=== PATIENT | female | born 1995 | race Caucasian/White ===

== ENCOUNTER 2018-09-11 15:41 | Outpatient (CLI) | payer BC ==
[~2018-09-11] VITALS: Ht 154.9 cm; Wt 81.4 kg
[2018-09-11 16:13] VITALS: Ht 154.9 cm; Wt 81.4 kg
[2018-09-11] MEDS ORDERED: PNV11TAB PO (16:15)
--- NOTE | 2018-09-11 17:35 | TRIAGE ---
OB Triage Datetime Report Generated by CPN: 09/11/2018 17:35 Datetime: 09/11/2018 16:17 Labor Evaluation Frequency: 2-4 Monitor Mode: External Duration (sec)2399: 60-100 Quality: Mild Pattern: Normal: <= 5 Contractions in 10 Minutes Resting Tone [place]: Relaxed Heart Rate FHR Baseline Rate: 130 Monitor Mode: External US FHR Baseline Changes: No Baseline Change Variability: Moderate 6-25 bpm Accelerations: 15X15 Decelerations: None Category: Category I Pain Assessment Pain Presence: None/Denies Datetime: 09/11/2018 16:10 Stage of : OB Triage Assessment Type: Triage Maternal Assessment Level of Consciousness: Fully Conscious DTR's/Clonus: DTRs 2+; No Clonus Headache: Denies Blurred Vision: No Respiratory Effort: Unlabored; Regular Rhythm; Equal Expansion Breath Sounds, Left: Clear and Equal Breath Sounds, Right: Clear and Equal Nausea/Vomiting: Denies RUQ Epigastric Pain: Denies Facial Edema: None Temperature Route: Axillary Fall Risk Assessment History of Falling: (0) No Secondary Diagnosis: (0) No Ambulatory Aid: (0) Bedrest/Nurse Assist IV Therapy: (0) No Gait: (0) Normal/Bedrest/Immobile Mental Status: (0) Oriented to Own Ability Fall Score: 0 Fall Risk Score Definition: No Risk: No action required Datetime: 09/11/2018 16:00 Time of Arrival: 09/11/2018 16:00 EGA: 40.1 Arrived By: Ambulatory Arrived From: Office Chief Complaint: POST DATE Movement: Present Contractions: Denies/Absent Rupture of Membranes: Denies Vaginal Bleeding: None Vaginal Discharge: Denies Recent Sexual Intercouse: Denies Abdominal Trauma: Not Applicable Patient Complaints: None Provider Notified: dr shah Initial Plan: EFW,BPP Datetime: 08/19/2018 00:30 Fall Score: 0 Fall Risk Score Definition: No Risk: No action required Datetime: 08/19/2018 00:29 EGA: 36.6
[2018-09-12] MEDS ORDERED: FER325 PO (11:35)
== END 2018-09-11 17:18 | disposition home or self-care (01) ==
LOC: OBT 15:41 → L-D 15:42 → OBT 17:18
PROVIDERS: ATTEND Obstetrics & Gynecology
DX: O48.0 Post-term pregnancy (principal); Z3A.40 40 weeks gestation of pregnancy
CPT/HCPCS: 76815; 76818; Z7500; G0463

== ENCOUNTER 2018-09-12 10:56 | Inpatient (IN) | payer BC ==
--- NOTE | 2018-09-11 18:38 | PN ---
Triage Information Date/Time Reason for visit: postdate for NST BPP Weeks of Gestation 40+ /Para n/a Diabetes: none Hypertention: none Objective Heart Rate: 140's Contractions: >10 Minutes Apart Disposition: Discharge Assessment/Plan BPP 04/19 Cx closed As her provider's recommendation.she will see her tomorrow and decides about the mode of delivery Questions answered Precautions discussed Follow up with provider XIMENA GOMEZ M.D. Sep 11, 2018 18:38
[~2018-09-12] VITALS: Ht 154.9 cm; Wt 80.8 kg
[~2018-09-12 10:56] MED LIST: PNV11TAB PO
[2018-09-12] MEDS ORDERED: FER325 PO (11:35)
[2018-09-12 11:36] VITALS: Ht 154.9 cm; Wt 80.8 kg
[2018-09-12 11:37] VITALS: BP 118/67; PULSE 75; RESP 18
--- NOTE | 2018-09-12 11:54 | HP ---
Date/Time of Note Date/Time of Note DATE: 09/12/18 TIME: 11:51 OB - History Hx of Present Chief Complaint: post date Estimated Due Date: Sep 10, 2018 : 2 Para: 0 Spontaneous : 0 Therapeutic : 1 Care: Good Care Ultrasounds: Normal mid trimester US Obstetrical Complications: None Medical Complications: None Past Family/Social History * Past Medical, Surgical, Family and Obstetric Histories reviewed from chart. GBS Status: Negative OB Admission Exam Vital Signs Vital Signs Vital Signs Date Temp Pulse Resp B/P (MAP) Pulse Ox O2 O2 Flow FiO2 Time Delivery Rate 09/12/18 98.4 75 18 118/67 Room Air 11:37 (84) Physical Exam HEENT: WNL Heart: Rhythm Normal Lungs: Clear, Equal Abdomen: WNL Extremities: Normal Reflexes: Normal Cervical Dilatation: None Effacement: 50% Station: -2 Membranes: Intact Heart Rate: 120's Accelerations: Accelerations Present Decelerations: No Decelerations Varibility: Moderate OB Assessment/Plan Reason for admission: induction of labor Plan: Induction Induction Method: per Misoprostol Protocol CECY JULIAN MD Sep 12, 2018 11:54
[2018-09-12] MEDS ORDERED: BUTORPHANOL 2 MG INJ IV PRN (12:00)
[2018-09-12] MEDS ORDERED: LIDOCAINE 1% (MPF) 30 ML INJ INJ PRN (12:00)
[2018-09-12] MEDS ORDERED: CARBOPROST 250 MCG INJ IM PRN (12:00)
[2018-09-12] MEDS ORDERED: IBUPROFEN 600 MG TAB PO PRN (12:00)
[2018-09-12] MEDS ORDERED: METHYLERGONOVINE 0.2 MG INJ IM PRN (12:00)
[2018-09-12] MEDS ORDERED: OXYTOCIN 30 UNITS/LR 500 ML IV PRN (12:00)
[2018-09-12] MEDS ORDERED: OXYTOCIN 30 UNITS/LR 500 ML IV SCH (12:00)
[2018-09-12] MEDS ORDERED: MISOPROSTOL 200 MCG TAB PR PRN (12:00)
[2018-09-12] MEDS: LACTATED RINGER'S 1,000 ML IV SCH ×3 (12:08→23:41)
[2018-09-12] MEDS: MISOPROSTOL 50 MCG CAPSULE PO SCH ×3 (12:28→21:44)
[2018-09-13] MEDS: LACTATED RINGER'S 1,000 ML IV SCH ×3 (03:46→19:03)
[2018-09-13] MEDS: MISOPROSTOL 50 MCG CAPSULE PO SCH ×5 (08:36→21:00)
[2018-09-13] MEDS: OXYTOCIN 30 UNITS/LR 500 ML IV SCH (20:52)
[2018-09-14] MEDS: LACTATED RINGER'S 1,000 ML IV SCH ×4 (03:47→20:42)
[2018-09-14] MEDS ORDERED: LACTATED RINGER'S 1,000 ML IV PRN (07:45)
[2018-09-14] MEDS ORDERED: IBUPROFEN 600 MG TAB PO PRN (08:00)
[2018-09-14] MEDS ORDERED: MINERAL OIL LIGHT 10 ML VIAL TOP PRN (08:00)
[2018-09-14] MEDS: OXYTOCIN 30 UNITS/LR 500 ML IV SCH (10:05)
--- NOTE | 2018-09-14 20:21 | PREAC ---
Date/Time of Note Date/Time of Note DATE: 09/14/18 TIME: 20:20 Anesthesia Eval and Record Evaluation Time Pre-Procedure Interview DATE: 09/14/18 TIME: 20:20 Age 23 Sex female NPO: 8 hrs Preoperative diagnosis iup at post dates Planned procedure labor epidural Past Medical History Past Medical History: None Surgery & Anesthesia Issues No known issue Meds Anticoagulation: No Beta Rhea within 24 hr: No Reason Beta Rhea not given: Pt. not on B-Rhea Reported Medications Ferrous Sulfate* (Ferrous Sulfate*) 325 Mg Tabec, 325 MG PO BID, TAB 09/12/18 Discontinued Reported Medications [id number] ( ) 1 Each Tablet, 1 TAB PO DAILY, TAB 09/11/18 Current Medications Lactated Ringer's 1,000 ml @ 125 mls/hr Q8H IV Last administered on 09/14/18at 19:48; Admin Dose 125 MLS/HR; Start 09/12/18 at 11:40 Butorphanol Tartrate (Stadol) 2 mg Q2H PRN IV .PAIN; Start 09/12/18 at 12:00 Lidocaine (Xylocaine 1% (Mpf)) 30 ml ONCE PRN INJ .EPISIOTOMY; Start 09/12/18 at 12:00 Oxytocin/Lactated Ringer's 500 ml @ 500 mls/hr ONCE POST IV ; Start 09/12/18 at 12:00 Oxytocin/Lactated Ringer's 500 ml @ 125 mls/hr POST IV ; Start 09/12/18 at 12:00 Oxytocin/Lactated Ringer's 500 ml @ 0 mls/hr ONCE PRN IV .VAGINAL BLEEDING; Start 09/12/18 at 12:00 Methylergonovine Maleate (Methergine) 0.2 mg ONCE PRN IM .VAGINAL BLEEDING; Start 09/12/18 at 12:00 Oxytocin/Lactated Ringer's 500 ml @ 0 mls/hr FOR INDUCTION IV Last administered on 09/14/18at 10:05; Admin Dose 1 MLS/HR; Start 09/13/18 at 20:30 Ibuprofen (Motrin) 600 mg ONCE PRN PO .PAIN 1-5; Start 09/14/18 at 08:00 Lactated Ringer's 1,000 ml @ 2,000 mls/hr Q30M PRN IV .ANESTHESIA; Start 09/14/18 at 07:45 Mineral Oil (Muri-Lube) PRN PRN TOP EPISIOTOMY; Start 09/14/18 at 08:00 Meds reviewed: Yes Allergies Coded Allergies: No Known Allergy (Unverified , 08/19/18) Allergies Reviewed: Yes Labs/Studies Labs Reviewed: Reviewed by anesthesiologist Result Diagram: 09/12/18 1100 test: Positive Pre-procedure Exam Last vitals Vital Signs Date Temp Pulse Resp B/P (MAP) Pulse Ox O2 O2 Flow FiO2 Time Delivery Rate 09/12/18 98.4 75 18 118/67 Room Air 11:37 (84) Airway: Adequate mouth opening, Adequate thyromental dist Mallampati: Mallampati II Teeth: Normal Lung: Normal Heart: Normal ASA Physical Status ASA physical status: 2 Emergency: None Planned Anesthetic Neuraxial: Epidural Planned Pain Management Parenteral pain med Pre-operative Attestations Prior to commencing anesthesia and surgery, the patient was re-evaluated, there was verification of: *The patient's identity *The results of appropriate recent lab work and preoperative vital signs *The above evaluation not changing prior to induction *Anesthetic plan, risk benefits, alternative and complications discussed with patient/family; questions answered; patient/family understands, accepts and wishes to proceed. ILIA CHAPMAN Sep 14, 2018 20:21
[2018-09-14] MEDS ORDERED: FENTAnyl 50 MCG/ML VIAL ONE (20:23)
[2018-09-14] MEDS ORDERED: ROPIVACAINE 0.2% 100 ML ONE (20:23)
[2018-09-14] MEDS ORDERED: FENTAnyl 2MCG/ML-ROPIV 0.2% 100 ML BAG EPI SCH (20:30)
[2018-09-14] MEDS ORDERED: DIPHENHYDRAMINE 50 MG INJ IV PRN (20:30)
[2018-09-14] MEDS ORDERED: ONDANSETRON 4 MG INJ IV PRN (20:30)
[2018-09-14] MEDS ORDERED: NALOXONE (0.4 MG/ML) INJ IV PRN (20:30)
[2018-09-15] MEDS: LACTATED RINGER'S 1,000 ML IV SCH ×3 (01:50→21:02)
[2018-09-15] MEDS ORDERED: ROPIVACAINE 0.2% 100ML BAG EPI PRN (04:00)
[2018-09-15] MEDS ORDERED: ONDANSETRON 4 MG INJ ONE (07:00)
[2018-09-15] MEDS ORDERED: OXYTOCIN 30 UNITS/LR 500 ML BAG IV ONE (07:00)
[2018-09-15] MEDS ORDERED: CEFAZOLIN 2 GM/50 ML (PMX) 50 ML IVPB ONE (07:30)
--- NOTE | 2018-09-15 07:49 | PREAC ---
Date/Time of Note Date/Time of Note DATE: 09/15/18 TIME: 07:48 Anesthesia Eval and Record Evaluation Time Pre-Procedure Interview DATE: 09/15/18 TIME: 07:48 Age 23 Sex female NPO: 8 hrs Preoperative diagnosis Failure to Progress Planned procedure Past Medical History Past Medical History: Includes : : (1), Para: (0), Gestational age: (40) Surgery & Anesthesia Issues No known issue Meds Anticoagulation: No Beta Rhea within 24 hr: No Reason Beta Rhea not given: Pt. not on B-Rhea Reported Medications Ferrous Sulfate* (Ferrous Sulfate*) 325 Mg Tabec, 325 MG PO BID, TAB 09/12/18 Discontinued Reported Medications [id number] ( 19) 1 Each Tablet, 1 TAB PO DAILY, TAB 09/11/18 Current Medications Lactated Ringer's 1,000 ml @ 125 mls/hr Q8H IV Last administered on 09/15/18at 07:07; Admin Dose 125 MLS/HR; Start 09/12/18 at 11:40 Butorphanol Tartrate (Stadol) 2 mg Q2H PRN IV .PAIN; Start 09/12/18 at 12:00 Lidocaine (Xylocaine 1% (Mpf)) 30 ml ONCE PRN INJ .EPISIOTOMY; Start 09/12/18 at 12:00 Oxytocin/Lactated Ringer's 500 ml @ 500 mls/hr ONCE POST IV ; Start 09/12/18 at 12:00 Oxytocin/Lactated Ringer's 500 ml @ 125 mls/hr POST IV ; Start 09/12/18 at 12:00 Oxytocin/Lactated Ringer's 500 ml @ 0 mls/hr ONCE PRN IV .VAGINAL BLEEDING; Start 09/12/18 at 12:00 Methylergonovine Maleate (Methergine) 0.2 mg ONCE PRN IM .VAGINAL BLEEDING; Start 09/12/18 at 12:00 Oxytocin/Lactated Ringer's 500 ml @ 0 mls/hr FOR INDUCTION IV Last administered on 09/14/18at 10:05; Admin Dose 1 MLS/HR; Start 09/13/18 at 20:30 Ibuprofen (Motrin) 600 mg ONCE PRN PO .PAIN 1-5; Start 09/14/18 at 08:00 Lactated Ringer's 1,000 ml @ 2,000 mls/hr Q30M PRN IV .ANESTHESIA; Start 09/14/18 at 07:45 Mineral Oil (Muri-Lube) PRN PRN TOP EPISIOTOMY; Start 09/14/18 at 08:00 Naloxone HCl (Narcan) 0.1 mg Q2M PRN IV .RESP RATE; Start 09/14/18 at 20:30; Stop 09/15/18 at 20:29 Diphenhydramine HCl (Benadryl) 25 mg Q6H PRN IV .ITCHING; Start 09/14/18 at 20:30; Stop 09/15/18 at 20:29 Ondansetron HCl (Zofran Inj) 4 mg Q6H PRN IV .NAUSEA/VOMITING; Start 09/14/18 at 20:30; Stop 09/15/18 at 20:29 Fentanyl/ Ropivacaine 100 ml EPIDURAL INFUSION EPI ; Start 09/14/18 at 20:30 Ropivacaine (Naropin 0.2% 100 ml Bag) 100 ml PRN PRN EPI ANESTHESIA Last administered on 09/15/18at 04:17; Admin Dose 100 ML; Start 09/15/18 at 04:00 Cefazolin Sodium/ Dextrose 50 ml @ 100 mls/hr ONCE ONCE IVPB ; Start 09/15/18 at 07:30; Stop 09/15/18 at 07:59 Meds reviewed: Yes Allergies Coded Allergies: No Known Allergy (Unverified , 08/19/18) Allergies Reviewed: Yes Labs/Studies Labs Reviewed: Reviewed by anesthesiologist Result Diagram: 09/12/18 1100 test: Positive Studies: ECG (n/a), CXR (n/a) Pre-procedure Exam Last vitals Vital Signs Date Temp Pulse Resp B/P (MAP) Pulse Ox O2 O2 Flow FiO2 Time Delivery Rate 09/12/18 98.4 75 18 118/67 Room Air 11:37 (84) Airway: Adequate mouth opening, Adequate thyromental dist Mallampati: Mallampati II Teeth: Normal Lung: Normal Heart: Normal ASA Physical Status ASA physical status: 2 Emergency: None Planned Anesthetic Neuraxial: Epidural Planned Pain Management Epidural Pre-operative Attestations Prior to commencing anesthesia and surgery, the patient was re-evaluated, there was verification of: *The patient's identity *The results of appropriate recent lab work and preoperative vital signs *The above evaluation not changing prior to induction *Anesthetic plan, risk benefits, alternative and complications discussed with patient/family; questions answered; patient/family understands, accepts and wishes to proceed. CAMDEN CONNELLY MD Sep 15, 2018 07:49
[2018-09-15] MEDS ORDERED: CITRIC ACID/NA CITRATE 30 ML CUP ONE (07:51)
[2018-09-15] MEDS ORDERED: CITRIC ACID/NA CITRATE 30 ML CUP PO ONE (08:00)
[2018-09-15] MEDS ORDERED: ONDANSETRON 4 MG INJ IV ONE (08:00)
--- NOTE | 2018-09-15 08:55 | QN ---
Documentation Comment Patient has progressed to 2 cm dilation and there has been no further progress despite having adequate contractions and amniotomy. Patient is for delivery by primary due to arrest of dilation. Risks, benefits and alternatives were explained to the patient who stated she understood and gave informed consent for the procedure. CECY JULIAN MD Sep 15, 2018 08:55
[2018-09-15] MEDS ORDERED: PHENYLephrine (100 MCG/ML) 10ML SYG ONE (09:02)
[2018-09-15] MEDS ORDERED: KETOROLAC 30 MG INJ ONE (09:03)
[2018-09-15] MEDS ORDERED: DEXAMETHASONE 4 MG/ML 1 ML INJ ONE (09:03)
[2018-09-15] MEDS ORDERED: OXYTOCIN 10 UNIT INJ ONE (09:03)
[2018-09-15] MEDS ORDERED: METOCLOPRAMIDE 10 MG INJ ONE (09:03)
[2018-09-15] MEDS ORDERED: morphine SULFATE/PF (10 MG/10 ML) INJ ONE (09:14)
[2018-09-15] MEDS ORDERED: AZITHROMYCIN 500MG/NS (PMX) 250 ML IVPB ONE (09:30)
--- NOTE | 2018-09-15 10:01 | OPR ---
Operative Report Planned Procedure Procedure date Sep 15, 2018 Procedure(s) Primary low transverse Performed by Cecy Julian MD Cattle Killer: DILIP HERNANDEZ MD Anesthesiologist: CAMDEN CONNELLY MD Pre-procedure diagnosis Term with arrest of dilation [id number] Anesthesia Type: [id number] epidural Post-Procedure Post-procedure diagnosis Same Findings Live Baby, Apgars 8 and 8 Estimated Blood Loss: other (700 ml) Specimen(s) Placenta Grafts/Implant(s) none Complication(s) none Pt Condition post procedure: stable Disposition: PACU Procedure Description After spinal anesthesia had been dosed and tested, the patient was placed supine on the Operating Room table and prepped and draped in the usual sterile fashion for a section. A Pfannenstiel incision was made through the abdomen and carried down to the level of the fascia. The fascia was incised transversely and then the rectus muscle was dissected off the fascia and split bluntly in the midline. The peritoneum was the entered bluntly. The bladder flap was created and then a low segment transverse incision was made with a knife on the uterus until the amniotic fluid was encountered. The incision was widened with bandage scissors. A hand was inserted elevating the vertex and then the head delivered with assistance of fundal pressure.. The nares and oropharynx were bulb suctioned, and the remainder of the infant was delivered out of the maternal abdomen. . The cord was doubly clamped and cut, and the handed off to the awaiting resuscitation team who was present for delivery. The placenta was then manually extracted and the interior uterus was cleaned w ith a dry lap sponge. The uterus was exteriorized, and the incision of the uterus closed with a running interlocking stitch of Monocryl suture. The uterus was replaced in the maternal abdomen. The abdomen was cleared of clots. The fascia was closed with a running suture of #1 Vicryl suture meeting in the midline. The subcutaneous tissue was made hemostatic with Bovie cautery, and the skin approximated using faina. The patient tolerated the procedure well. All sponge and instrument counts were correct. She was taken to the recovery room in stable condition. CECY JULIAN MD Sep 15, 2018 10:01
--- NOTE | 2018-09-15 10:02 | PAC ---
Date/Time of Note Date/Time of Note DATE: 09/15/18 TIME: 10:01 Post-Anesthesia Notes Post-Anesthesia Note Last documented vital signs Vital Signs Date Temp Pulse Resp B/P (MAP) Pulse Ox O2 O2 Flow FiO2 Time Delivery Rate 09/15/18 99.8 75 18 118/67 97 Room Air 10:07 (84) Activity: WNL Respiratory function: WNL Cardiovascular function: WNL Mental status: Baseline Pain reasonably controlled: Yes Hydration appropriate: Yes Nausea/Vomiting absent: Yes CAMDEN CONNELLY MD Sep 15, 2018 10:02
[2018-09-15] MEDS: OXYTOCIN 30 UNITS/LR 500 ML IV SCH ×2 (10:28→11:43)
[2018-09-15 12:00] VITALS: BP 118/70; PULSE 72; RESP 16
[2018-09-15] MEDS ORDERED: LACTATED RINGER'S 1,000 ML IV SCH (12:14)
[2018-09-15] MEDS ORDERED: OXYTOCIN 30 UNITS/LR 500 ML IV SCH (12:14)
[2018-09-15 12:30] VITALS: BP 123/73; PULSE 64; RESP 16
[2018-09-15] MEDS ORDERED: LANOLIN HPA 1 PKT TOP PRN (12:30)
[2018-09-15] MEDS ORDERED: CARBOPROST 250 MCG INJ IM PRN (12:30)
[2018-09-15] MEDS ORDERED: OXYCODONE/ACETAMINOPHEN (5/325) TAB PO PRN ×2 (12:30)
[2018-09-15] MEDS ORDERED: OXYTOCIN 30 UNITS/LR 500 ML IV PRN (12:30)
[2018-09-15] MEDS ORDERED: METHYLERGONOVINE 0.2 MG INJ IM PRN (12:30)
[2018-09-15] MEDS ORDERED: MISOPROSTOL 200 MCG TAB PR PRN (12:30)
[2018-09-15] MEDS ORDERED: ONDANSETRON 4 MG INJ IV PRN (13:00)
[2018-09-15] MEDS ORDERED: HYDROmorphONE 0.5 MG/0.5 ML SYG IV PRN ×2 (13:00)
[2018-09-15] MEDS ORDERED: KETOROLAC 30 MG INJ IV PRN (13:00)
[2018-09-15] MEDS ORDERED: morphine 2 MG INJ IV PRN ×2 (13:00)
[2018-09-15] MEDS ORDERED: ACETAMINOPHEN 500 MG TAB PO PRN (13:00)
[2018-09-15] MEDS ORDERED: HYDROCODONE/APAP (5/325) TAB PO PRN (13:00)
[2018-09-15] MEDS ORDERED: NALBUPHINE HCL (10 MG/1 ML) INJ IV PRN (13:00)
[2018-09-15] MEDS ORDERED: DIPHENHYDRAMINE 50 MG INJ IV PRN (13:00)
[2018-09-15] MEDS ORDERED: NALOXONE (0.4 MG/ML) INJ IV PRN (13:00)
[2018-09-15] MEDS ORDERED: IBUPROFEN 800 MG TAB PO SCH (14:00)
[2018-09-15 15:00] VITALS: BP 122/71; PULSE 72; RESP 20
[2018-09-15 20:00] VITALS: BP 99/56; PULSE 83; RESP 16
[2018-09-15] MEDS: SENNA/DOCUSATE NA (8.6MG/50MG) TAB PO SCH (21:00)
[2018-09-16] VITALS: BP 99/58; PULSE 76; RESP 16
[2018-09-16 04:00] VITALS: BP 101/60; PULSE 80; RESP 16; RESP 18
[2018-09-16] MEDS: LACTATED RINGER'S 1,000 ML IV SCH (06:57)
[2018-09-16 08:30] VITALS: BP 99/56; PULSE 71; RESP 18
[2018-09-16] MEDS: SENNA/DOCUSATE NA (8.6MG/50MG) TAB PO SCH ×2 (09:07→21:10)
[2018-09-16] MEDS: IBUPROFEN 800 MG TAB PO SCH ×2 (13:52→21:44)
--- NOTE | 2018-09-16 16:26 | QN ---
Documentation Comment No complaint Afebrile VSS Abdomen soft ND POD #1 Stable Ambulate Advance diet. CECY JULIAN MD Sep 16, 2018 16:26
[2018-09-16 16:30] VITALS: BP 101/60; PULSE 77
[2018-09-16 20:00] VITALS: BP 94/53; PULSE 86; RESP 20
[2018-09-16] MEDS: FERROUS SULFATE (EC) 325 MG TAB PO SCH (21:10)
[2018-09-17 04:20] VITALS: BP 98/54; PULSE 80; RESP 20
[2018-09-17] MEDS ORDERED: OXYTOCIN 30 UNITS/LR 500 ML BAG IV ONE (07:00)
[2018-09-17] MEDS: IBUPROFEN 800 MG TAB PO SCH ×3 (07:29→22:00)
[2018-09-17] MEDS: FERROUS SULFATE (EC) 325 MG TAB PO SCH ×3 (09:40→21:01)
[2018-09-17] MEDS: SENNA/DOCUSATE NA (8.6MG/50MG) TAB PO SCH ×2 (09:40→21:01)
[2018-09-17 09:54] VITALS: BP 103/54; PULSE 89; RESP 20
[2018-09-17 11:44] VITALS: BP 105/56; PULSE 66; RESP 20
[2018-09-17 15:40] VITALS: BP 112/62; PULSE 60; RESP 18
--- NOTE | 2018-09-17 18:39 | DS ---
Date/Time of Note Date/Time of Note DATE: 09/17/18 TIME: 18:38 Obstetrical Discharge Record Final Diagnosis Final Diagnosis: Term delivered Section Section: Primary Primary Indication Arrest of dilation Complications Induction: Yes Condition on Discharge Physical Assessment Voiding: Yes Bowel Movement: Yes Breast: Soft, non-tender, Filling Fundus: Firm Abdomen and Incision: Incision intact Calf Tenderness: No Patient Condition: Stable CECY JULIAN MD Sep 17, 2018 18:39
[2018-09-17 19:50] VITALS: BP 104/55; PULSE 75; RESP 19
[2018-09-18 04:20] VITALS: BP 114/72; PULSE 75; RESP 19
[2018-09-18] MEDS: IBUPROFEN 800 MG TAB PO SCH (05:49)
[2018-09-18 07:39] VITALS: BP 113/76; PULSE 56; RESP 20
[2018-09-18] MEDS: FERROUS SULFATE (EC) 325 MG TAB PO SCH (09:00)
[2018-09-18] MEDS: SENNA/DOCUSATE NA (8.6MG/50MG) TAB PO SCH (09:00)
[2018-09-18] MEDS ORDERED: DIPHTH/TET/ACEL PERTUSS (ADULT) 0.5 ML VIAL IM* ONE (09:00)
[2018-09-18 11:26] VITALS: BP 113/55; RESP 20
== END 2018-09-18 13:15 | disposition home or self-care (01) | DRG 788 ==
LOC: L-D 10:56 → EDSTATUS 09-13 10:56 → L-D 09-15 08:50 → PP1 09-15 11:53
PROVIDERS: ADMIT Obstetrics & Gynecology; ATTEND Obstetrics & Gynecology
PROC: 3E033VJ Introduction of Other Hormone into Peripheral Vein, Percutaneous Approach (ICD-10-PCS; 2018-09-12)
PROC: 10907ZC Drainage of Amniotic Fluid, Therapeutic from Products of Conception, Via Natural or Artificial Opening (ICD-10-PCS; 2018-09-15)
PROC: 10D00Z1 Extraction of Products of Conception, Low, Open Approach (ICD-10-PCS; principal; 2018-09-16)
DX: O48.0 Post-term pregnancy (principal); O62.0 Primary inadequate contractions; Z3A.40 40 weeks gestation of pregnancy; Z37.0 Single live birth
CPT/HCPCS: 62319; 85025; 85610; 85730; 86592; 86850; 86900; 86901; 87340; 90686; 90715; 99464; J0456; J0690; J1100; J1885; J2274; J2370; J2405; J2590; J2765; J2795; J3010; J7120